=== PATIENT | female | born 1990 | race Caucasian/White ===

== ENCOUNTER 2020-04-11 12:19 | Emergency (ER) | payer MEDICAID, OTHER ==
[~2020-04-11] VITALS: Ht 154.9 cm; Wt 116.0 kg
[~2020-04-11 12:19] MED LIST: NO HOME MEDS; SULF1TAB49 PO; tamsulosin capsule PO
[2020-04-11 12:46] VITALS: BP 117/81
[2020-04-11] MEDS ORDERED: PENI500T2 PO (13:57)
[2020-04-11] MEDS ORDERED: IBUP-1986 PO (13:57)
[2020-04-11] MEDS ORDERED: HYDR-4353 PO (13:57)
== END 2020-04-11 14:40 | disposition home or self-care (01) ==
LOC: ER 12:20
DX: K08.89 Other specified disorders of teeth and supporting structures (principal); Z87.442 Personal history of urinary calculi; Z60.2 Problems related to living alone; Z91.040 Latex allergy status; Z79.899 Other long term (current) drug therapy
CPT/HCPCS: 99283